=== PATIENT | female | born 1990 | race Caucasian/White ===

== ENCOUNTER 2021-01-02 20:10 | Inpatient (IN) | payer MEDICAID, SELFPAY ==
[~2021-01-02] VITALS: Ht 167.6 cm; Wt 102.5 kg
[2021-01-02] MEDS ORDERED: ASPI81EC30 PO (21:15)
[2021-01-02] MEDS ORDERED: PREN-556 PO (21:15)
[2021-01-02 22:24] LABS: APPEARANCE,URINE CLEAR (CLEAR); BILIRUBIN,URINE NEGATIVE (NEGATIVE); BLOOD, URINE 2+ (NEGATIVE); COLOR,URINE YELLOW (YELLOW); LEUKOCYTE ESTERASE ,URINE NEGATIVE (NEGATIVE); NITRITE, URINE NEGATIVE (NEGATIVE); UGLUCOSE NEGATIVE (NEGATIVE)
[2021-01-02 22:32] LABS: RBC,URINE 0-5 /HPF (0-5); WBC,URINE 0-5 /HPF (0-5)
[2021-01-02] MEDS: LACTATED RINGERS 1,000 ML IV SCH (22:35)
[2021-01-02] MEDS ORDERED: ZOLPIDEM 5 MG TAB PO SCH (22:55)
[2021-01-02] MEDS ORDERED: ACETAMINOPHEN 325 MG TAB PO PRN (22:55)
[2021-01-02] MEDS ORDERED: AMPICILLIN 2,000 MG VIAL ONE (23:03)
[2021-01-02] MEDS ORDERED: ACETAMINOPHEN 325 MG TAB ONE (23:11)
[2021-01-02] MEDS ORDERED: ZOLPIDEM 5 MG TAB ONE (23:17)
[2021-01-03] MEDS ORDERED: AMPICILLIN 2,000 MG VIAL ONE ×3 (03:06→14:51)
[2021-01-03] MEDS: AMPICILLIN 2,000 MG in NACL 0.9% 100 ML IV SCH ×3 (03:13→14:56)
[2021-01-03] MEDS ORDERED: AMPICILLIN 1,000 MG VIAL ONE (06:49)
[2021-01-03] MEDS: LACTATED RINGERS 1,000 ML IV SCH ×2 (08:32→17:27)
[2021-01-03] MEDS ORDERED: TERBUTALINE 2.5 MG TAB PO SCH (15:15)
[2021-01-03] MEDS ORDERED: TERBUTALINE 2.5 MG TAB ONE (15:17)
== END 2021-01-03 18:58 | disposition home or self-care (01) | DRG 566 ==
LOC: MLD 20:10 → OBSVTOIN 01-03 11:05
PROVIDERS: ADMIT Obstetrics & Gynecology; ATTEND Obstetrics & Gynecology
DX: O47.1 False labor at or after 37 completed weeks of gestation (principal); O23.43 Unspecified infection of urinary tract in pregnancy, third trimester; Z3A.37 37 weeks gestation of pregnancy; N39.0 Urinary tract infection, site not specified; O24.410 Gestational diabetes mellitus in pregnancy, diet controlled; Z20.822 Contact with and (suspected) exposure to COVID-19
CPT/HCPCS: G0378 ×15; 36415; 81001; 82947; 82948; 87086; J0290

== ENCOUNTER 2021-01-13 19:35 | Inpatient (IN) | payer MEDICAID, SELFPAY ==
[~2021-01-13] VITALS: Ht 167.6 cm; Wt 108.0 kg
[~2021-01-13 19:35] MED LIST: ASPI81EC30 PO; PREN-556 PO
[2021-01-13] MEDS ORDERED: METHYLERGONOVINE 0.2 MG/ML AMP IM PRN (20:00)
[2021-01-13] MEDS ORDERED: OXYTOCIN 20 UNITS in LACTATED RINGERS 1,000 ML IV SCH (20:00)
[2021-01-13] MEDS ORDERED: CARBOPROST 250 MCG/ML AMP IM PRN (20:00)
[2021-01-13] MEDS ORDERED: NALBUPHINE 10 MG/ML AMP IVP PRN (20:00)
[2021-01-13] MEDS ORDERED: PROMETHAZINE 25 MG/ML VIAL IVP PRN (20:00)
[2021-01-13 20:20] LABS: APPEARANCE,URINE CLEAR (CLEAR); BILIRUBIN,URINE NEGATIVE (NEGATIVE); BLOOD, URINE 3+ (NEGATIVE); COLOR,URINE YELLOW (YELLOW); LEUKOCYTE ESTERASE ,URINE NEGATIVE (NEGATIVE); NITRITE, URINE NEGATIVE (NEGATIVE); PH,URINE 5.5 (5.0-9.0); UGLUCOSE NEGATIVE (NEGATIVE)
[2021-01-13 20:23] LABS: BASOPHILS % (AUTO) 0.3 % (0.0-2.0); EOSINOPHILS # (AUTO) 0.1 K/uL (0-0.4); EOSINOPHILS % (AUTO) 0.8 % (0.0-4.0); HEMATOCRIT 34.1 % (36-48); HEMOGLOBIN 11.5 g/dL (12.0-16.0); LYMPHOCYTES # (AUTO) 2.1 K/uL (2.5-16.5); LYMPHOCYTES % (AUTO) 23.7 % (20.5-51.1); MEAN CORPUSCULAR HEMOGLOBIN 26 pg (27-31); MEAN CORPUSCULAR HGB CONC 34 g/dL (33-37); MEAN CORPUSCULAR VOLUME 76.9 fL (80-94); MONOCYTES # (AUTO) 0.4 K/uL (0.8-1.0); MONOCYTES % (AUTO) 4.1 % (1.7-9.3); NEUTROPHILS # (AUTO) 6.4 K/uL (1.8-7.7); NEUTROPHILS % (AUTO) 71.1 % (42.2-75.2); PLATELET COUNT (AUTO) 224 K/uL (140-450); RED BLOOD CELL COUNT(AUTO) 4.43 MIL/uL (4.20-5.40); RED CELL DISTRIBUTION WIDTH 16.3 % (11.6-13.7)
[2021-01-13 20:35] LABS: RBC,URINE >100 /HPF (0-5); WBC,URINE NONE SEEN /HPF (0-5)
[2021-01-13 20:38] LABS: ALBUMIN 2.3 g/dL (3.4-5.0); ANION GAP 13.9 (8-16); CARBON DIOXIDE 20.5 mmol/L (21-32); CREATININE 0.8 mg/dL (0.6-1.3); POTASSIUM 3.4 mmol/L (3.5-5.1); TOTAL BILIRUBIN 0.4 mg/dL (0.0-1.0)
[2021-01-13] MEDS: LACTATED RINGERS 1,000 ML IV SCH (20:51)
[2021-01-13 22:15] VITALS: BP 136/72
[2021-01-13] MEDS ORDERED: PRETAB PO (22:21)
[2021-01-13] MEDS ORDERED: AMPICILLIN 2,000 MG VIAL ONE (23:40)
[2021-01-14] MEDS ORDERED: AMPICILLIN 2,000 MG in NACL 0.9% 100 ML IV SCH ×2
[2021-01-14] MEDS ORDERED: ACETAMINOPHEN 325 MG TAB PO PRN (00:55)
[2021-01-14] MEDS ORDERED: AMPICILLIN 1,000 MG VIAL ONE ×3 (03:37→11:46)
[2021-01-14] MEDS: AMPICILLIN 1,000 MG in NACL 0.9% 50 ML IV SCH ×3 (04:06→12:00)
[2021-01-14] MEDS ORDERED: OXYTOCIN 20 UNITS/LR PREMIX 1,000 ML IV ONE (05:06)
[2021-01-14] MEDS: LACTATED RINGERS 1,000 ML IV SCH ×2 (05:25→08:00)
[2021-01-14] MEDS ORDERED: LIDOCAINE 1% 500 MG/50 ML VIAL ONE (07:24)
[2021-01-14] MEDS ORDERED: ROPIVACAINE 0.2%/NS PREMIX 200 ML EPI ONE (07:29)
[2021-01-14] MEDS ORDERED: LIDOCAINE 1% 500 MG/50 ML VIAL INJ ONE (07:40)
--- NOTE | 2021-01-14 07:52 | NUR ---
PATIENT HAS BEEN SCREENED AND CATEGORIZED LOW NUTRITION RISK. PATIENT WILL BE SEEN WITHIN 7 DAYS OF ADMISSION. 01/20/[address]
[2021-01-14] MEDS ORDERED: OXYTOCIN 10 UNITS/ML VIAL ONE (11:46)
[2021-01-14] MEDS ORDERED: OXYTOCIN 20 UNITS in LACTATED RINGERS 1,000 ML IV SCH (13:20)
[2021-01-14] MEDS ORDERED: MEASLES, MUMPS, AND RUBELLA 1 VIAL SQVAC ONE (13:20)
[2021-01-14] MEDS ORDERED: bisacodyL 5 MG TABEC PO PRN (13:20)
[2021-01-14] MEDS ORDERED: DOCUSATE SODIUM 100 MG GELCAP PO PRN (13:20)
[2021-01-14] MEDS ORDERED: BENZOCAINE/MENTHOL 20%-0.5% 60 GM CAN TP PRN (13:20)
[2021-01-14] MEDS: IBUPROFEN 600 MG TAB PO PRN (13:50)
[2021-01-14] MEDS: ACETAMINOPHEN 325 MG TAB PO PRN (18:28)
[2021-01-15] MEDS: IBUPROFEN 600 MG TAB PO PRN ×3 (01:03→21:57)
[2021-01-15 08:26] LABS: BASOPHILS % (AUTO) 0.4 % (0.0-2.0); EOSINOPHILS # (AUTO) 0.1 K/uL (0-0.4); EOSINOPHILS % (AUTO) 1.5 % (0.0-4.0); HEMATOCRIT 31.6 % (36-48); HEMOGLOBIN 10.4 g/dL (12.0-16.0); LYMPHOCYTES # (AUTO) 2.5 K/uL (2.5-16.5); LYMPHOCYTES % (AUTO) 27.8 % (20.5-51.1); MEAN CORPUSCULAR HEMOGLOBIN 26 pg (27-31); MEAN CORPUSCULAR HGB CONC 33 g/dL (33-37); MEAN CORPUSCULAR VOLUME 78.5 fL (80-94); MONOCYTES # (AUTO) 0.5 K/uL (0.8-1.0); MONOCYTES % (AUTO) 5.9 % (1.7-9.3); NEUTROPHILS # (AUTO) 5.9 K/uL (1.8-7.7); NEUTROPHILS % (AUTO) 64.4 % (42.2-75.2); PLATELET COUNT (AUTO) 166 K/uL (140-450); RED BLOOD CELL COUNT(AUTO) 4.02 MIL/uL (4.20-5.40); RED CELL DISTRIBUTION WIDTH 16.2 % (11.6-13.7); WHITE BLOOD COUNT (AUTO) 9.1 K/uL (4.8-10.8)
[2021-01-16] MEDS: IBUPROFEN 600 MG TAB PO PRN ×2 (08:26→19:15)
[2021-01-16] MEDS ORDERED: FERR325E14 PO (09:04)
[2021-01-16] MEDS ORDERED: IBUP-1842 PO ×2 (09:05→09:08)
[2021-01-16] MEDS: ACETAMINOPHEN 325 MG TAB PO PRN (11:52)
== END 2021-01-16 20:20 | disposition home or self-care (01) | DRG 560 ==
LOC: MLD 19:35 → MFCC 01-14 15:30
PROVIDERS: ADMIT Obstetrics & Gynecology; ATTEND Obstetrics & Gynecology
PROC: 10E0XZZ Delivery of Products of Conception, External Approach (ICD-10-PCS; principal; 2021-01-14)
PROC: 0HQ9XZZ Repair Perineum Skin, External Approach (ICD-10-PCS; 2021-01-14)
PROC: 3E0R3BZ Introduction of Anesthetic Agent into Spinal Canal, Percutaneous Approach (ICD-10-PCS; 2021-01-14)
PROC: 00HU33Z Insertion of Infusion Device into Spinal Canal, Percutaneous Approach (ICD-10-PCS; 2021-01-14)
DX: O69.81X0 Labor and delivery complicated by cord around neck, without compression, not applicable or unspecified (principal); Z37.0 Single live birth; O24.429 Gestational diabetes mellitus in childbirth, unspecified control; O70.0 First degree perineal laceration during delivery; Z3A.38 38 weeks gestation of pregnancy
CPT/HCPCS: 36415; 51702; 59409; 80053; 81001; 85025; 86592; 86886; 86900; 86901; J0290; J2001; J2300; J2550; J2590; J2795; J7120